=== PATIENT | female | born 1970 | race American Indian/Alaskan Native ===

== ENCOUNTER 2016-08-13 17:15 | Emergency (ER) | payer MEDICAID | END 2016-08-13 17:52 | disposition left against medical advice (07) | LOC: ED 17:15 | DX: F41.0 Panic disorder [episodic paroxysmal anxiety] (principal); Z53.21 Procedure and treatment not carried out due to patient leaving prior to being seen by health care provider ==

== ENCOUNTER 2017-07-28 19:54 | Emergency (ER) | payer MEDICAID, MEDICARE ==
--- NOTE | 2017-07-28 20:47 | Emergency Department Report ---
ED Shortness of Breath HPI - General Chief Complaint: Dyspnea/Respdistress Stated Complaint: FB THROAT Time Seen by Provider: 07/28/17 20:42 Source: patient Mode of arrival: Stretcher Limitations: No Limitations - History of Present Illness Initial Comments: 46 YO FEMALE C/O TURKEY BONE STUCK IN HER THROAT WHILE EATING SOUP 1845 TODAY. PT C/O THROAT PAIN BUT NO DIFFICULTY BREATHING. . SHE IS ABLE TO HANDLE HER SECRETIONS AND HAD NO DIFFICULTY BREATHING. SHE IS NOT IN ANY DISTRESS -: Sudden - Related Data Home Oxygen Therapy: No Previous Rx's Medication Instructions Recorded Last Taken Type Methocarbamol [Robaxin] 750 mg PO Q8H PRN #20 tablet 12/06/13 Unknown Rx HYDROcodone/APAP 7.5-325 [[place] 1 each PO Q6HR PRN #10 tablet 07/29/17 Unknown Rx 7.5-325 mg TAB] Allergies Allergy/AdvReac Type Severity Reaction Status Date / Time codeine AdvReac Unknown Verified 12/06/13 15:30 ED Review of Systems ROS: Stated complaint: FB THROAT Other details as noted in HPI Constitutional: denies: chills, fever Eyes: denies: eye pain, eye discharge, vision change ENT: throat pain. denies: ear pain Respiratory: denies: cough, shortness of breath, wheezing Cardiovascular: denies: chest pain, palpitations Endocrine: no symptoms reported Gastrointestinal: denies: abdominal pain, nausea, diarrhea Genitourinary: denies: urgency, dysuria, discharge Musculoskeletal: denies: back pain, joint swelling, arthralgia Skin: denies: rash, lesions Neurological: denies: headache, weakness, paresthesias Psychiatric: denies: anxiety, depression Hematological/Lymphatic: denies: easy bleeding, easy bruising ED Past Medical Hx - Past Medical History Previous Medical History?: Yes Additional medical history: DDD lumbar spine, Sciatica, Pinched nerve Lumbar spine. depression, - Surgical History Past Surgical History?: Yes Hx Cholecystectomy: Yes Additional Surgical History: lump right breast removed. x 2. mass under right arm removed. bilat foot surgery - Social History Smoking Status: Never Smoker Substance Use Type: None - Medications Home Medications: Home Medications Medication Instructions Recorded Confirmed Last Taken Type Methocarbamol [Robaxin] 750 mg PO Q8H PRN #20 tablet 12/06/13 Unknown Rx HYDROcodone/APAP 7.5-325 [[place] 1 each PO Q6HR PRN #10 tablet 07/29/17 Unknown Rx 7.5-325 mg TAB] ED Physical Exam - General Limitations: No Limitations General appearance: alert, in no apparent distress - Head Head exam: Present: atraumatic, normocephalic - Eye Eye exam: Present: normal appearance, EOMI - ENT ENT exam: Present: mucous membranes moist, other (NO DROOLING, HANDLING HER SECRETIONS WELL) - Neck Neck exam: Present: normal inspection, full ROM - Respiratory Respiratory exam: Present: normal lung sounds bilaterally. Absent: respiratory distress, wheezes, rales, rhonchi, accessory muscle use - Cardiovascular Cardiovascular Exam: Present: regular rate, normal rhythm. Absent: systolic murmur, diastolic murmur, rubs, gallop - GI/Abdominal GI/Abdominal exam: Present: soft, normal bowel sounds - Rectal Rectal exam: Present: deferred - Extremities Exam Extremities exam: Present: normal inspection, full ROM - Back Exam Back exam: Present: normal inspection - Neurological Exam Neurological exam: Present: alert, oriented X3, CN II-XII intact - Psychiatric Psychiatric exam: Present: normal affect, normal mood - Skin Skin exam: Present: warm, dry, intact, normal color. Absent: rash ED Course Vital Signs 07/28/17 07/28/17 07/29/17 20:04 22:49 04:35 Temperature 98.5 F Pulse Rate 72 74 79 Respiratory 18 16 18 Rate Blood Pressure 124/62 124/65 Blood Pressure 124/68 108/57 [Left] O2 Sat by Pulse 97 99 100 Oximetry - Reevaluation(s) Reevaluation #1: 07/29/17 06:50 DR CALDERON HER TO REMOVE THE TURKEY BONE BUT IT IS QUITE POSSIBLE THAT THIS BONE HAS BEEN LODGED FURTHER DOWN THE ESOPHAGUS VS IN THE STOMACH. A REPEAT LATERAL SOFT TISSUE NECK HAS BEEN DONE AND AP CHEST WELL. PT WILL BE DISPOSITIONED BY DR SUERO ED Medical Decision Making - Radiology Data Radiology results: report reviewed (CXR:FOREIGN BODY IN ESOPHAGUS AT C7 CONSISTENT WITH HISTORY) - Medical Decision Making , DR ALMONTE, THE GI DOCTOR [employer], DID RESPOND. [facility] ENT PAGED AND THE PT WAS ACCEPTED FOR TRANSFER. DR CALDERON OF [facility] , RESPONDED AND CAME IN TO EXAMINED THE PT. IN SCOPING THE PT. THE BONE MIGHT STILL BE IN THE ESOPHAGUS VS IN THE STOMACH. REPEAT LATERAL NECK AND AP CHEST DONE. THE OFFICIAL READING HAVE NOT BEEN POSTED. PT CARE IS TURNED OVER TO DR SUERO WHO IN CONJUNCTION WITH DR KVNG OGDEN DISPOSITION THE PT. Critical care time in (mins) excluding proc time.: 60 Critical care attestation.: If time is entered above; I have spent that time in minutes in the direct care of this critically ill patient, excluding procedure time. RADHA Critical Care Time: 60MIN ED Disposition Clinical Impression: Throat pain Foreign body in throat Qualifiers: Encounter type: initial encounter Qualified Code(s): T17.208A - Unspecified foreign body in pharynx causing other injury, initial encounter Disposition: TO HOME OR SELFCARE Is pt being admited?: Yes Does the pt Need Aspirin: No Condition: Critical Instructions: Upper Endoscopic Gastrointestinal Ultrasonography (ED) Prescriptions: HYDROcodone/APAP 7.5-325 [[place] 7.5-325 mg TAB] 1 each PO Q6HR PRN #10 tablet PRN Reason: Pain Referrals: KARLIE AL MD [Primary Care Provider] - 3-5 Days Time of Disposition: 22:03
[2017-07-28] MEDS ORDERED: GLUCAGEN IV ONE ×2 (20:49→22:27)
[2017-07-28] MEDS ORDERED: NACL 0.9% 1000 ML 1,000 ML IV ONE (20:51)
--- NOTE | 2017-07-28 21:25 | XRay Report ---
FINAL REPORT EXAM: XR NECK SOFT TISSUE HISTORY: BONE STUCK INTHROAT,THROAT PAIN TECHNIQUE: Soft tissue neck two views PRIORS: None. FINDINGS: There is a 1.1 x 0.26 centimeter radiopaque foreign body demonstrated in the prevertebral pole soft tissues the C7 level most consistent with ingested foreign body likely bone fragment within upper esophagus. No soft tissue gas appreciated. No evidence for pharyngeal distention. Proximal trachea is unremarkable. IMPRESSION: Findings are consistent with ingested bone fragment in the upper esophagus at the C7 level
--- NOTE | 2017-07-29 01:22 | XRay Report ---
FINAL REPORT PROCEDURE: XR NECK SOFT TISSUE TECHNIQUE: Soft tissue neck radiographs, 2 views, including AP and lateral. CPT 18612 HISTORY: NECK PAIN, ?FOREIGN BODY INTHROAT COMPARISON: No prior studies are available for comparison. FINDINGS: Bone mineralization: Normal. Alignment: Normal. Soft tissues: Epiglottis and hypopharyngeal soft tissues normal. Foreign bodies: Lateral view demonstrates a soft tissue density measuring 4 x 2.6 centimeters in the upper esophagus region. Impacted food bolus or other foreign body not excluded. Esophagram or endoscopy may be indicated. IMPRESSION: Lateral view demonstrates a soft tissue density measuring 4 x 2.6 centimeters in the upper esophagus region. Impacted food bolus or other foreign body not excluded. Esophagram or endoscopy may be indicated. The trachea is midline and patent.
[2017-07-29] MEDS ORDERED: DIPRIVAN 10 MG/ML IV ONE ×2 (04:25→05:46)
[2017-07-29] MEDS ORDERED: WATER FOR IRRIG STERILE IR ONE (04:32)
[2017-07-29] MEDS ORDERED: NACL 0.9% 1000 ML 1,000 ML ONE (04:36)
--- NOTE | 2017-07-29 05:57 | Gastroenterology Consultation ---
History of Present Illness - Reason for Consult Consult date: 07/29/17 Foreign body in esophagus Requesting physician: EDDIE GARCIA - History of Present Illness The patient is a 46 year old female for whom consultation was requested for a foreign body stuck in the esophagus. She was eating turkey soup and developed and acute bone impaction. ER evaluation revealed a bone in the cervical esophagus which did not resolve with glucagon administration. She has chronic back pain, but no other medical conditions. Past History Past Medical History: other (chronic back pain) Past Surgical History: Other (foot surgeries, breast biopsies) Social history: lives with family, smoking. denies: alcohol abuse, prescription drug abuse Family history: no significant family history Medications and Allergies Allergies Allergy/AdvReac Type Severity Reaction Status Date / Time codeine AdvReac Unknown Verified 12/06/13 15:30 Home Medications Medication Instructions Recorded Confirmed Last Taken Type HYDROcodone/APAP 7.5-325 [[place] 1 each PO Q6HR PRN #16 tablet 12/06/13 Unknown Rx 7.5-325 mg TAB] Methocarbamol [Robaxin] 750 mg PO Q8H PRN #20 tablet 12/06/13 Unknown Rx Review of Systems - Review of Systems Constitutional: no weight loss, no weight gain Eyes: no change in vision Ears, Nose, Throat: painful swallowing, no decreased hearing, no epistaxis Breasts: deferred Cardiovascular: shortness of breath, no chest pain Respiratory: shortness of breath, no cough Gastrointestinal: no abdominal pain, no nausea, no vomiting, no diarrhea, no constipation, no BRBPR, no melena Rectal: pain Female Genitourinary: deferred Musculoskeletal: other (chronic back pain), no gait dysfunction Neurological: no head injury, no paralysis Psychiatric: no anxiety, no memory loss Endocrine: no cold intolerance, no heat intolerance Hematologic/Lymphatic: no easy bruising, no easy bleeding Allergic/Immunologic: no wheezing Exam - Constitutional Vital Signs: Temp Pulse Resp BP Pulse Ox 74 16 108/57 99 07/28/17 22:49 07/28/17 22:49 07/28/17 22:49 07/28/17 22:49 General appearance: no acute distress, well-nourished - EENT Eyes: PERRL ENT: hearing intact, clear oral mucosa, dentition normal - Neck Neck: supple, normal ROM, no masses or JVD - Respiratory Respiratory effort: normal Respiratory: bilateral: CTA - Breasts Breasts: deferred - Cardiovascular Rhythm: regular Heart Sounds: Present: S1 & S2. Absent: gallop, rub Extremities: pulses intact, No edema, normal color, Full ROM - Gastrointestinal General gastrointestinal: Present: soft, non-tender, non-distended, normal bowel sounds. Absent: hepatomegaly, splenomegaly, mass Rectal Exam: deferred - Genitourinary Female Genitourinary: deferred - Integumentary Integumentary: Present: clear, warm, dry - Neurologic Neurological: alert and oriented x3 - Psychiatric Psychiatric: appropriate mood/affect, intact judgment & insight, memory intact - Imaging X-ray: image reviewed (Bone in cervical esophagus) Assessment and Plan - Patient Problems (1) Foreign body in esophagus Current Visit: Yes Status: Acute Plan to address problem: Urgent endoscopy for foreign body is planned. The procedure was explained in detail including risks of perforation, bleeding, aspiration of foreign body, cardiac or pulmonary compromise. Patient is in agreement.
--- NOTE | 2017-07-29 06:04 | Anesthesia Day of Surgery ---
Anesthesia Day of Surgery - Day of Surgery Patient Examined: Yes Patient H&P Reviewed: Yes Patient is NPO: Yes (last ate at 0)
--- NOTE | 2017-07-29 06:05 | Anesthesia Consultation ---
Anesthesia Consult and Med Hx Date of service: 07/29/17 - Airway Anesthetic Teeth Evaluation: Good ROM Head & Neck: Adequate Mental/Hyoid Distance: Adequate Mallampati Class: Class II Intubation Access Assessment: Probably Good - Pulmonary Exam CTA: Yes - Cardiac Exam Cardiac Exam: RRR - Pre-Operative Health Status ASA Pre-Surgery Classification: ASA2, Emergency Proposed Anesthetic Plan: MAC - Pulmonary Hx Smoking: Yes Home Oxygen Therapy: No - Central Nervous System Hx Psychiatric Problems: Yes - Other Systems Hx Obesity: Yes
--- NOTE | 2017-07-29 06:16 | Operative Report ---
Operative Report Operative Report: Date of procedure: 07/29/2017 Procedure: Esophagogastroduodenoscopy Preprocedure diagnosis: Foreign body in the proximal esophagus Post procedure diagnosis: Small tear in the proximal, cervical esophagus consistent with the site of prior bone impaction. Bone apparently dislodged with the endoscopic process using an overtube. Endoscopist: Dr. Kay Anesthesia: Monitored anesthesia care per anesthesia department Medications: Propofol per anesthesia Estimated blood loss:. After careful discussion of the nature and purpose of the procedure as well as details the technique risks benefits and alternatives consent was obtained. The patient was placed in the left lateral decubitus position and medicated per anesthesia. An overtube was initially attempted to be passed to help protect the airway, wherever this was not easily passed the internal obturator present. It was then elected to place the overtube over the top of the endoscope and pass the endoscope first. He overtube was then slid over the scope. The tip of the [employer] EQ 570 video scope was then passed per orum under direct vision into the esophagus and advanced into the stomach and descending duodenum. The descending duodenum the duodenal bulb and pylorus were symmetrical and normal. The scope was withdrawn into the stomach and the stomach then gently insufflated with air. The antrum was normal. The stomach was further insufflated and the scope was then retroflexed and partially withdrawn. The cardia, fundus, and body of the stomach were within normal limits and easily distensible.The scope was then withdrawn in the forward position. The esophagogastric junction was at 40 cm. The distal esophageal body was normal throughout. In the cervical esophagus at approximately 18 cm from the dentate line there was a shallow 7 mm tear in the mucosa consistent with the site of prior bone impaction. Careful search of the area with the overtube in place was performed however there was no apparent bone present. The overtube was carefully withdrawn and the hypopharyngeal area and cords inspected carefully. There appeared to be no impacted bone in the area proximal to the esophagus. The procedure was was well tolerated and the patient was observed in recovery. Impressions: Foreign body in the esophagus, apparently dislodged in the process of passing an overtube. Plan: Repeat lateral neck x-rays be certain that the bone is not impacted below the mucosal surface and in visible endoscopically. If the bone is no longer present the diet will be advanced and the patient can be safely discharged as long as she is tolerating oral intake. Electronically signed: Cedrick Kay MD
--- NOTE | 2017-07-29 07:05 | XRay Report ---
FINAL REPORT PROCEDURE: XR CHEST 1V AP TECHNIQUE: Chest radiograph anteroposterior view. CPT 29872 HISTORY: PAIN,FOREIGN BODY IN THROAT/CHEST COMPARISON: No prior studies are available for comparison. FINDINGS: Heart: Normal. Mediastinum/Vessels: Normal. Lungs/Pleural space: Lungs are expanded. There are no infiltrates, effusions or pneumothoraces.. Bony thorax: No acute osseous abnormality. Life support devices: None. IMPRESSION: No acute cardiopulmonary abnormality.
--- NOTE | 2017-07-29 07:07 | XRay Report ---
FINAL REPORT PROCEDURE: XR NECK SOFT TISSUE TECHNIQUE: Soft tissue neck radiographs, 2 views, including AP and lateral. CPT 36526 HISTORY: FOREIGN BODY IN THROAT COMPARISON: 07/28/2017 FINDINGS: Bone mineralization: Normal. Alignment: Normal. Soft tissues: Epiglottis and hypopharyngeal soft tissues normal. Foreign bodies: Lateral view demonstrates a soft tissue density in the region of the upper esophagus similar to prior study which could be an impacted food bolus. IMPRESSION: Lateral view demonstrates a soft tissue density in the region of the upper esophagus similar to prior study which could be an impacted food bolus.
[2017-07-29] MEDS ORDERED: MORPHINE ONE (07:18)
[2017-07-29] MEDS ORDERED: LIDOCAINE VISCOUS 2% ONE (07:20)
[2017-07-29] MEDS ORDERED: MORPHINE IV ONE (07:37)
[2017-07-29] MEDS ORDERED: LIDOCAINE VISCOUS 2% PO ONE (07:43)
--- NOTE | 2017-07-29 07:45 | Event Note ---
Date: 07/29/17 The f/u lateral neck and chest Xray was personally reviewed and the images reviewed with the radiologist, Dr. Arguello. There is no bone present in the cervical esophagus although soft tissue edema may be present as expected from having a food/bone impaction which is resolved endoscopically. I have discussed the findings with the ER physician, Dr. Sharp. Will advance her to clears and send home if tolerated. She may have mild odynophagia for a few days. Viscous lidocaine may be considered if sx present.
--- NOTE | 2017-07-29 09:45 | Event Note ---
Date: 07/29/17 Patient tolerating liquid feeds. No airway issues at this time. Cleared by GI to go home, A she is able to drink over here, she will be discharged as planned , return precautions were reviewed. Vital Signs 07/28/17 07/28/17 07/29/17 20:04 22:49 04:35 Temperature 98.5 F Pulse Rate 72 74 79 Respiratory 18 16 18 Rate Blood Pressure 124/62 124/65 Blood Pressure 124/68 108/57 [Left] O2 Sat by Pulse 97 99 100 Oximetry 07/29/17 07/29/17 07/29/17 05:51 06:06 06:21 Temperature 98.6 F Pulse Rate 90 82 82 Respiratory 18 17 21 Rate Blood Pressure 96/55 91/45 101/76 Blood Pressure [Left] O2 Sat by Pulse 99 97 100 Oximetry
[2017-07-29 10:28] VITALS: BP 118/78
== END 2017-07-29 10:10 | disposition home or self-care (01) ==
LOC: ED 19:54
DX: T18.128A Food in esophagus causing other injury, initial encounter (principal); Z88.5 Allergy status to narcotic agent; X58.XXXA Exposure to other specified factors, initial encounter; Y93.89 Activity, other specified; Y92.89 Other specified places as the place of occurrence of the external cause; Y99.8 Other external cause status
CPT/HCPCS: 43235; 70360; 71010; 96361; 96374; 96376; 99291; J1610; J2704; J7030; J2270